=== PATIENT | female | born 1990 | race Caucasian/White ===

== ENCOUNTER 2025-07-23 20:22 | Emergency (ER) | payer BC ==
[~2025-07-23] VITALS: Ht 177.8 cm; Wt 81.8 kg
[2025-07-23 20:32] VITALS: BP 136/94; PULSE 104; RESP 16; TEMP 98.1; O2SAT 97
[2025-07-23 22:03] LABS: APPEARANCE,URINE CLEAR (CLEAR); GLUCOSE, URINE (UA) NEGATIVE (NEGATIVE); LEUKOCYTE ESTERASE ,URINE NEGATIVE (NEGATIVE); NITRATE,URINE NEGATIVE (NEGATIVE); OCCULT BLOOD,URINE MODERATE (NEGATIVE); SPECIFIC GRAVITIY, URINE 1.030 (1.003-1.030)
[2025-07-23 22:27] LABS: SQUAMOUS EPITHELIAL CELL,UR Few /LPF (None Seen)
[2025-07-23] MEDS: LIDOCAINE/PF 1% 2 ML VIAL IM ONE (23:08)
[2025-07-23] MEDS: DOXYCYCLINE HYCLATE 100 MG TABLET PO ONE (23:08)
[2025-07-23] MEDS: CefTRIAXone SODIUM 1 GM/VIAL IM ONE (23:08)
[2025-07-23 23:12] LABS: PLATELET COUNT (AUTO) 274 K/uL (150-450); RED BLOOD CELL COUNT(AUTO) 4.66 MIL/uL (4.00-5.20); RED CELL DISTRIBUTION WIDTH 13.3 % (11.5-14.5); WHITE BLOOD COUNT (AUTO) 12.4 K/uL (4.5-11.0)
[2025-07-23] MEDS ORDERED: DOXY-354 PO (23:19)
[2025-07-23] MEDS ORDERED: METR500 PO (23:19)
[2025-07-23 23:23] LABS: CALCIUM, TOTAL 8.1 mg/dL (8.8-10.5); CREATININE 0.61 mg/dL (0.60-1.30); GLOMERULAR FILTR. RATE CALC > 60 mL/min (>60); GLUCOSE,RANDOM 85 mg/dL (70-110); SODIUM SERUM 138 mmol/L (136-145); UREA NITROGEN, BLOOD 12 mg/dL (7-18)
[2025-07-23 23:28] LABS: ASPARTATE AMINOTRANSFERASE 35.0 U/L (15-37); TOTAL PROTEIN, SERUM 7.5 g/dL (6.4-8.2)
[2025-07-23 23:36] LABS: PREGNANCY RESULT, SERUM POSITIVE (NEGATIVE)
[2025-07-23] MEDS ORDERED: AZIT-167 PO (23:39)
[2025-07-24 08:37] LABS: HEPATITIS B SURFACE AG (II) NEGATIVE (NEGATIVE)
[2025-07-24 09:05] LABS: HIV ANTI-1,2,P24 AG COMBO Non-Reactive (Non-Reactiv)
== END 2025-07-24 00:05 | disposition home or self-care (01) ==
LOC: EMS 20:22
DX: O9A.411 Sexual abuse complicating pregnancy, first trimester (principal); O9A.211 Injury, poisoning and certain other consequences of external causes complicating pregnancy, first trimester; N89.8 Other specified noninflammatory disorders of vagina; Z79.899 Other long term (current) drug therapy; Z3A.01 Less than 8 weeks gestation of pregnancy; Y08.89XA Assault by other specified means, initial encounter; Y93.89 Activity, other specified; Y92.89 Other specified places as the place of occurrence of the external cause; Y99.8 Other external cause status
CPT/HCPCS: 99283; 86592; 80048; 80076; 81001; 84702; 84703; 85025; 87340; 36415; 96372; 87389; J0696; J3490